=== PATIENT | female | born 1940 | race Caucasian/White ===

== ENCOUNTER 2016-11-03 10:55 | Outpatient (CLI) | payer MEDICARE ==
--- NOTE | 2016-11-03 17:25 | DIAGNOSTIC IMAGING REPORT ---
PROCEDURE: US SOFT TISSUE THYR/NECK/HEAD INDICATION: RIGHT YAZIDI/ LEG WEAKNESS;NAUSEA TECHNIQUE: Hernandez scale and color Doppler sonographic images of the right temporal area were obtained. COMPARISON: None. FINDINGS: Ultrasound of the right temporal area demonstrates normal soft tissues. There is no evidence of a mass, fluid collection or inflammatory process. IMPRESSION: 1. Negative ultrasound of the right jainism.
--- NOTE | 2016-11-03 17:25 | DIAGNOSTIC IMAGING REPORT ---
PROCEDURE: US SOFT TISSUE THYR/NECK/HEAD INDICATION: RIGHT BAPTIST/ LEG WEAKNESS;NAUSEA TECHNIQUE: Hernandez scale and color Doppler sonographic images of the right temporal area were obtained. COMPARISON: None. FINDINGS: Ultrasound of the right temporal area demonstrates normal soft tissues. There is no evidence of a mass, fluid collection or inflammatory process. IMPRESSION: 1. Negative ultrasound of the right alevism.
== END 2016-11-03 23:00 ==
LOC: US SRH 10:55
DX: R11.0 Nausea (principal); R53.1 Weakness

== ENCOUNTER 2016-12-23 10:34 | Outpatient (CLI) | payer MEDICARE ==
--- NOTE | 2016-12-23 11:58 | DIAGNOSTIC IMAGING REPORT ---
PROCEDURE: US ART LOW EXT WITH JOHN-RIGHT INDICATION: RLL CELLULITIS,VARICOSE VEINS TECHNIQUE: Color Doppler duplex imaging of the right lower extremity arterial system was performed. Pre exercise ABIs were acquired. The patient was unable to exercise. COMPARISON: None. FINDINGS: ABIs: Pre exercise posterior tibial: 1.02. Pre exercise dorsalis pedis: 1.05. VESSELS/ WAVEFORMS: Focal, moderate length segment of noncalcified atherosclerotic plaque in the proximal right superficial femoral artery causing a mild subjective luminal stenosis with slight velocity elevation, but no alteration of distal wave form significantly. No other focal stenosis or significant calcification. There is biphasic external iliac artery flow, minimally triphasic flow in the common femoral artery, and biphasic arterial flow throughout the remainder of the right lower extremity. PEAK SYSTOLIC VELOCITIES: External iliac: 121 cm/second. Common femoral artery: 86 cm/second. Profunda femoral artery: 70 cm/second. Proximal superficial femoral artery (just proximal to area of stenosis): 79 cm/second. Proximal SFA (area of mild stenosis): 132 cm/sec Mid superficial femoral artery: 96 cm/second. Distal superficial femoral artery: 81 cm/second. Popliteal artery: 72 cm/second. Proximal posterior tibial artery: 58 cm/second. Proximal anterior tibial artery: 55 cm/second. Peroneal artery: 41 cm/second. Distal posterior tibial artery: 59 cm/second. Dorsalis pedis artery: 59 cm/second. IMPRESSION: 1. Mild stenosis of the proximal right superficial femoral artery causing slight velocity elevation but no alteration of distal blood flow. 2. Biphasic arterial flow suggesting mild atherosclerosis diffusely. 3. Given resting ABIs, no resting arterial insufficiency. The patient was unable to exercise due to limited mobility. 4. No hemodynamically significant stenosis of the arterial system.
== END 2016-12-23 23:00 | disposition home or self-care (01) ==
LOC: US SRH 10:34
DX: I83.91 Asymptomatic varicose veins of right lower extremity (principal)